=== PATIENT | female | born 1950 ===

== ENCOUNTER 2019-01-10 11:22 | Outpatient (CLI) | payer OTHER ==
[~2019-01-10] VITALS: Ht 157.5 cm; Wt 63.5 kg
== END 2019-01-10 11:40 | disposition home or self-care (01) ==
LOC: OFIC 805 11:22
DX: R07.0 Pain in throat (principal); E04.1 Nontoxic single thyroid nodule; K21.0 Gastro-esophageal reflux disease with esophagitis